=== PATIENT | female | born 2000 | race Caucasian/White ===

== ENCOUNTER 2018-08-04 17:20 | Inpatient (IN) | payer MEDICAID ==
[~2018-08-04] VITALS: Ht 142.2 cm; Wt 52.2 kg
--- NOTE | ~2018-08-04 | OP ---
PATIENT NAME: ZBIGNIEW GIL MEDICAL RECORD: [id number] :98 LOCATION:[facility] ADMISSION DATE:08/04/18 SURGEON: BHANU BRANCH MD DATE OF OPERATION: 08/05/2018 PREOPERATIVE DIAGNOSIS: Premature rupture of membranes with failed induction of labor. POSTOPERATIVE DIAGNOSES: Premature rupture of membranes with failed induction of labor and uterine atony. PROCEDURE: A primary low transverse section and B-Urbano uterine compression suture. SURGEON: Bhanu Branch MD ANESTHESIA: Regional via epidural. INTRAVENOUS FLUIDS: Per anesthesia record. ESTIMATED BLOOD LOSS: 1000 cc. SPECIMENS: Placenta and cord for gases. COMPLICATIONS: None apparent. DESCRIPTION OF PROCEDURE: The patient was taken to the operating room where regional anesthesia was achieved without difficulty. The patient was then prepped and draped in normal sterile fashion in the dorsal supine position. A Maher catheter had previously been placed and was draining freely. SCDs were on and functioning appropriately. Following prep and drape, a Pfannenstiel skin incision was made, extended downward to the underlying subcutaneous fat to level of the fascia, which was then excised in the midline with scalpel and extended bilaterally using the Ordonez scissors. The superior and inferior aspects of the fascial incision were then grasped with Jay Jay clamps times 2, tented upward, and sharply dissected from the underlying rectus muscle using the Ordonez scissors and the Bovie cautery. Rectus muscles were then bluntly in the midline and the peritoneum entered sharply at the superior aspect of the incision using the Metzenbaum scissors. The peritoneal incision was then extended laterally under direct visualization of the bladder and a bladder blade was placed into the pelvis. A bladder flap was created by excising the anterior leaf of the broad ligament across the lower uterine segment. A low transverse incision was made and extended superiorly and inferiorly using the Pelosi method. Infant's head was delivered atraumatically followed by the body. The infant was bulb suctioned upon delivery. Cord was clamped times 2, cut, and the infant was handed to awaiting nursery team. Placenta was removed manually intact, 3-vessel cord was noted. The uterus was cleaned of all clots and debris and vigorously massaged. The uterine atony was noted; however, bleeding was noted to be minimal and so massage was continued. Pitocin was begun via IV. The patient was given IM Methergine and IM Hemabate, and uterine atony continued. The patient was given Cytotec 1000 mcg per rectum and uterine atony continued. The patient desired future fertility, which was confirmed in the operating room. At this point, the bleeding was found to be less found 1000 cc. It was felt reasonable at this time to proceed with B-Urbano compression suture. The uterine incision was repaired with 0 Vicryl in a running locked fashion. OPERATIVE REPORT [id number] ZBIGNIEW GIL Approximately, 3/4 complete from lateral to the midline. This was then tied off leaving a hole in the low transverse incision in the midline and 0 Vicryl suture was then used, transfixed at the right aspect of the incision, carried over the right uterine fundus, transfixed from right to left in the lower uterine segment on the posterior aspect of the uterus. The suture then carried over the uterine fundus on the left and then anchored in the left aspect of the uterine incision. The suture was then used to compress the uterus down with minimal bleeding. Then, noted from the small defect remaining in the low transverse incision. Low transverse incision was then completely sewn overusing 0 Vicryl and good compression of the uterus was noted. Posterior cul-de-sac was then thoroughly irrigated and the uterus was replaced into the pelvis. The uterus remained at the level of the umbilicus. The counts were correct times 2 for needles, sponges, and instruments. The fascia was repaired with 0 loop PDS times 1 and the skin repaired with joaquin. The patient tolerated the procedure well, transferred to postanesthesia recovery stable without incident. TRANSINT:[id number] Voice Confirmation ID: [id number] DOCUMENT ID: [id number] BHANU BRANCH MD at 1716 CC: [id number] DICTATION DATE: 08/25/18 0609 ORACLE DATABASE ADMINISTRATOR: 08/25/18 0738 DIS IN 08/08/18 [facility] [address] [id number]
--- NOTE | ~2018-08-04 | EC ---
PATIENT:ZBIGNIEW GIL DATE OF SERVICE: 08/04/18 SEX: F MEDICAL RECORD: [id number] DATE OF : [birth year] LOCATION:[facility] AGE OF PATIENT: 17 ADMISSION DATE: 08/04/18 REFERRING PHYSICIAN: INTERPRETING PHYSICIAN: LUZMA BENJAMIN MD ECHOCARDIOGRAM REPORT ECHO CHARGES 4 ECHO COMPLETE Date: 08/08/18 CLINICAL DIAGNOSIS: POST EDEMA/ASSESS FOR EFFUSION AND CARDIOMYOPATHY ECHOCARDIOGRAPHIC MEASUREMENTS (adult normal given) AC root (d.<3.7cm) 2.6 cm LV Septum d (<1.2 cm> 1.2 cm Valve Excursion 1.2 cm LV Septum (systole) 1.6 cm Left Atria (s.<4.0cm> 3.2 cm LVPW d(<1.2cm) 1.1 cm RV (d.<2.3cm) 3.9 cm LVPW (sytole) 1.4 cm LV diastole(<5.6CM) 3.7 cm MV E-F(>70mm/sec) cm LV systole 2.1 cm LVOT Diameter 1.5 cm MV exc.(>10mm) 1.9 cm Est.ejection fraction (50-75%) % DOPPLER: LVIT cm/sec A 60.0 cm/sec E 144 cm/sec LA cm/sec RVSP 38 mmHg LVOT 106 cm/sec AOP1/2T m/s Asc. Ao 136 cm/sec RVOT 103 cm/sec RA cm/sec PA 143 cm/sec AV Gradient Peak 7.36 mmHg AV Mean 3.64 mmHg AV Area 1.4 cm MV Gradient Peak 8.59 mmHg MV Mean 1.75 mmHg MV Area cm COMMENTS: Talent Management Manager: 2 JEIMY WATTS [employer] Specials: 3 Dr. Cosby TAPE# PACS Pericardial Effusion N DATE OF SERVICE: Adequate 2-D, color flow and spectral Doppler, and M-mode. No LVH. LV internal dimensions are normal. Wall motion is normal. EF is greater than or equal to 55%. Aortic valve is tricuspid. There is no evidence of stenosis on Doppler interrogation. Left atrium is normal. Mitral valve shows no prolapse. Trivial MR. Right-sided chamber is grossly normal. Trivial TR with color flow imaging. ECHOCARDIOGRAM REPORT [id number] ZBIGNIEW GIL TRANSINT:[id number] Voice Confirmation ID: [id number] DOCUMENT ID: [id number] LUZMA BENJAMIN MD at 1150 CC: [id number] DICTATION DATE: 08/09/18934 RN SURGICAL: 08/09/18 1223 DIS IN 08/08/18 [facility] [address] [id number]
[2018-08-04 18:21] LABS: APPEARANCE CLEAR (CLEAR); BILIRUBIN NEGATIVE (NEGATIVE); COLOR DK YELLOW (YELLOW); GLUCOSE NEGATIVE (NEGATIVE); KETONE NEGATIVE (NEGATIVE); NITRITE NEGATIVE (NEGATIVE); PROTEIN TRACE mg/dL (NEGATIVE); UROBILINOGEN NORMAL (NORMAL)
[2018-08-04 18:22] LABS: RED CELLS - URINE OCC /hpf (0-5)
[2018-08-04 18:23] LABS: BACTERIA MODERATE /hpf (NONE SEEN)
[2018-08-04 19:51] LABS: HEMATOCRIT 28.6 % (36.0-48.0); HEMOGLOBIN 9.3 g/dL (12-16); MCH 26.4 pg (26.0-34.0); MCHC 32.5 g/dL (31.0-37.0); MCV 81.3 fL (80.0-100.0); MEAN PLATELET VOLUME 10.9 fL (7.4-10.4); RBC 3.52 10x6/uL (4.00-5.40); WBC 13.9 10x3/uL (4.8-10.8)
[2018-08-04 20:00] VITALS: BP 120/77; Ht 142.2 cm; Wt 52.2 kg
[2018-08-05] VITALS (7 sets, daily range): BP systolic 116–140; BP diastolic 65–85
[2018-08-05 15:05] LABS: BASOPHILS 0.2 % (0-2); EOSINOPHILS 0.1 % (0-7); HEMOGLOBIN 9.9 g/dL (12-16); IMMATURE GRANULOCYTES 0.8 % (0-5); LYMPHOCYTES 7.9 % (15-50); MCH 26.3 pg (26.0-34.0); MCHC 31.9 g/dL (31.0-37.0); MCV 82.2 fL (80.0-100.0); MEAN PLATELET VOLUME 11.1 fL (7.4-10.4); MONOCYTES 6.5 % (2-11); NEUTROPHILS 84.5 % (40-80); PLATELET COUNT 261 10x3/uL (130-400); RBC 3.77 10x6/uL (4.00-5.40); RDW 13.1 % (11.5-14.5); WBC 14.8 10x3/uL (4.8-10.8)
[2018-08-05 23:25] LABS: HEMOGLOBIN 11.2 g/dL (12-16); MCH 27.6 pg (26.0-34.0); MCHC 32.9 g/dL (31.0-37.0); MCV 83.7 fL (80.0-100.0); MEAN PLATELET VOLUME 11.2 fL (7.4-10.4); PLATELET COUNT 258 10x3/uL (130-400); RBC 4.06 10x6/uL (4.00-5.40); RDW 14.3 % (11.5-14.5); WBC 22.9 10x3/uL (4.8-10.8)
[2018-08-05 23:46] LABS: LYMPHOCYTES 3 % (15-50); NEUTROPHILS 97 % (40-80); PLATELET ESTIMATE NORMAL
[2018-08-06] VITALS (7 sets, daily range): BP systolic 112–134; BP diastolic 48–79
[2018-08-06 06:35] LABS: BASOPHILS 0.1 % (0-2); EOSINOPHILS 0 % (0-7); HEMATOCRIT 35.4 % (36.0-48.0); HEMOGLOBIN 11.8 g/dL (12-16); IMMATURE GRANULOCYTES 0.5 % (0-5); MCH 27.7 pg (26.0-34.0); MCHC 33.3 g/dL (31.0-37.0); MCV 83.1 fL (80.0-100.0); MEAN PLATELET VOLUME 11.1 fL (7.4-10.4); MONOCYTES 10.1 % (2-11); NEUTROPHILS 85.3 % (40-80); PLATELET COUNT 230 10x3/uL (130-400); RBC 4.26 10x6/uL (4.00-5.40); RDW 14.3 % (11.5-14.5); WBC 31.2 10x3/uL (4.8-10.8)
[2018-08-06 07:34] LABS: RAPID PLASMA REAGIN Non Reactive (Non Reactive)
[2018-08-06 09:14] LABS: UDS - AMPHET NEGATIVE QUAL (NEGATIVE); UDS - BARB NEGATIVE QUAL (NEGATIVE); UDS - BENZO NEGATIVE QUAL (NEGATIVE); UDS - COCAINE NEGATIVE QUAL (NEGATIVE); UDS - OPIATE NEGATIVE QUAL (NEGATIVE); UDS - PCP NEGATIVE QUAL (NEGATIVE); UDS - THC POSITIVE QUAL (NEGATIVE)
[2018-08-06 13:59] LABS: BASOPHILS 0 % (0-2); EOSINOPHILS 0.1 % (0-7); HEMATOCRIT 33.6 % (36.0-48.0); HEMOGLOBIN 11.1 g/dL (12-16); IMMATURE GRANULOCYTES 0.5 % (0-5); LYMPHOCYTES 6.4 % (15-50); MCH 27.1 pg (26.0-34.0); MEAN PLATELET VOLUME 10.9 fL (7.4-10.4); MONOCYTES 8.9 % (2-11); NEUTROPHILS 84.1 % (40-80); PLATELET COUNT 202 10x3/uL (130-400); RDW 14.2 % (11.5-14.5); WBC 24.5 10x3/uL (4.8-10.8)
[2018-08-07 07:30] VITALS: BP 120/70
[2018-08-07 07:39] LABS: BASOPHILS 0.1 % (0-2); EOSINOPHILS 0.4 % (0-7); HEMATOCRIT 31.8 % (36.0-48.0); HEMOGLOBIN 10.7 g/dL (12-16); IMMATURE GRANULOCYTES 0.5 % (0-5); LYMPHOCYTES 7.8 % (15-50); MCH 27.4 pg (26.0-34.0); MCHC 33.6 g/dL (31.0-37.0); MCV 81.5 fL (80.0-100.0); MEAN PLATELET VOLUME 10.2 fL (7.4-10.4); MONOCYTES 8.5 % (2-11); NEUTROPHILS 82.7 % (40-80); PLATELET COUNT 193 10x3/uL (130-400); RDW 14.4 % (11.5-14.5)
[2018-08-07 07:41] LABS: WBC 16.7 10x3/uL (4.8-10.8)
[2018-08-07 07:49] LABS: ALBUMIN 1.3 g/dL (3.4-5.0); ALKALINE PHOSPHATASE 224 U/L (46-116); ALT (SGPT) 19 U/L (10-68); BILIRUBIN - TOTAL 0.27 mg/dL (0.2-1.3); CALC OSMOLALITY 271 mosm/kg (275-300); CALCIUM 7.6 mg/dL (8.5-10.1); CARBON DIOXIDE 20.9 mmol/L (21.0-32.0); CHLORIDE - SERUM 107 mmol/L (98-107); CREATININE - SERUM 0.8 mg/dL (0.6-1.3); GLUCOSE 75 mg/dL (74-106); POTASSIUM - SERUM 3.9 mmol/L (3.5-5.1); PROTEIN - SERUM 4.4 g/dL (6.4-8.2); SODIUM 137 mmol/L (136-145); UREA NITROGEN 9 mg/dL (7-18); eGFR NON AFRICAN AMERICAN > 90 mL/min (90-120)
[2018-08-07 11:06] VITALS: BP 114/66
[2018-08-07 19:19] VITALS: BP 121/73
[2018-08-08 00:31] VITALS: BP 125/79
[2018-08-08 08:11] VITALS: BP 130/83
[2018-08-08] MEDS ORDERED: FUROSEMIDE20 MG PO (16:28)
[2018-08-08] MEDS ORDERED: NORCO 10-325 TA1 TAB PO (16:28)
[2018-08-08] MEDS ORDERED: IBUPROFEN600 MG PO (16:28)
[2018-08-12] MEDS ORDERED: NIFEDIPINE30 MG/BOT1 PO (17:52)
== END 2018-08-08 16:48 | disposition home or self-care (01) | DRG 787 ==
LOC: D.LDO 17:20 → D.LD 18:49 → D.WS 18:49 → D.LD 08-07 13:42
PROVIDERS: Obstetrics & Gynecology
PROC: 0UQ90ZZ Repair Uterus, Open Approach (ICD-10-PCS; 2018-08-05)
PROC: 10D00Z1 Extraction of Products of Conception, Low, Open Approach (ICD-10-PCS; principal; 2018-08-05 18:45)
DX: O42.013 Preterm premature rupture of membranes, onset of labor within 24 hours of rupture, third trimester (principal); O72.1 Other immediate postpartum hemorrhage; D62 Acute posthemorrhagic anemia; Z3A.35 35 weeks gestation of pregnancy; Z37.0 Single live birth; O99.02 Anemia complicating childbirth

== ENCOUNTER → 2018-08-12 15:15 | Outpatient (CLI) | payer MEDICAID ==
[2018-08-04 20:00] VITALS: BMI 25.8
[2018-08-12] VITALS (8 sets, daily range): BP systolic 143–154; BP diastolic 82–95
--- NOTE | ~2018-08-12 | DS ---
PATIENT:ZBIGNIEW GIL :[birth year] MEDICAL RECORD: [id number] DISCHARGE SUMMARY ADMISSION DATE: 08/12/18 DISCHARGE DATE: 08/12/18 SUBJECTIVE: The patient was admitted at 35 weeks and 4 days, 1, admitted for loss of fluid and premature rupture of membranes. The patient had been started on Pitocin at that time. PAST MEDICAL HISTORY: The patient reported no significant past medical history. PAST SURGICAL HISTORY: Significant for removal of the wisdom teeth. ALLERGIES: The patient reported no allergies. FAMILY HISTORY: No significant family history. SOCIAL HISTORY: Negative times 3. PHYSICAL EXAMINATION: VITAL SIGNS: Admit vital signs was found to be stable. The patient was afebrile and normotensive. LUNGS: Clear to auscultation. CARDIOVASCULAR: Regular rate and rhythm. PELVIC: Uterus was appropriately sized and nontender. Amnio stat test was found to be positive. EXTREMITIES: Lower extremities were free of Homans sign or erythema or swelling. Fetus with a 130 category 1 tracing. ASSESSMENT AND PLAN: At that time spontaneous rupture of membranes at 35 weeks. The patient admitted by Ealr Tejada MD. Pitocin was then begun. I assumed care and added Invanz due to the prolonged rupture of membranes, category 1 tracing remained. No significant cervical change was noted despite prolonged use of Pitocin and fetus with also beginning of having decelerations. I discussed with the patient the necessity to move forward with . The patient voiced understanding and consent. Operative report is as dictated. The patient did well overnight on postop day #0, on Dilaudid WOOD TYPE CUTTER, IV Toradol, IV fluids, tolerating clear liquid diet. SCDs were on and functioning normally. Hourly checks of the uterine fundus were performed due to uterine atony and B-Urbano suture placement. The morning of postop day #1, the patient continued to do well. The patient with some antidiuretic hormone effect from prolonged use of Pitocin. Pitocin was discontinued at that time. Uterine fundus was found to be at the umbilicus. The patient with normal lochia. Methergine was continued for 24 hours. The patient was continued on antibiotics. White blood cell count postop was found to be 33, although the patient was afebrile. The uterine atony can sometimes be a sequelae of uterine infections, so the patient was continued on antibiotics. The patient had received 2 units of packed red blood cells intraoperatively. Urine output was found to be adequate. CBC was checked in the afternoon, the patient remained afebrile and uterus is nontender. The patient continued to do well on postop day #2, symptoms improving; however, with still dependent and nondependent edema. The patient was given a dose of Lasix and was diuresing normally. White blood cell count was normalizing. Incision was clean, dry and intact. Uterus remained infraumbilical. The patient was tolerating p.o. pain meds and general diet and ambulating and voiding freely. Covering physician, Dr. 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 I at that time ordered a echo, which found a normal ejection fraction, it was felt at that time that the elevated BNP was due to valvular regurg and no evidence of heart failure was noted at that time. Clinically, the patient without significant pulmonary edema or orthopnea. The patient was discharged home on postoperative day #3 with instructions to follow up the next week. TRANSINT:[id number] Voice Confirmation ID: [id number] DOCUMENT ID: [id number] NANO GANN MD at 1716 CC: [id number] DICTATION DATE: 08/25/18614 CLINICAL INVESTIGATOR: 08/25/18816 DEP CLI 08/12/18 [place] [id number]
[~2018-08-12 15:15] MED LIST: FUROSEMIDE20 MG PO; IBUPROFEN600 MG PO; NIFEDIPINE30 MG/BOT1 PO; NORCO 10-325 TA1 TAB PO
[2018-08-12 16:23] LABS: BASOPHILS 0.2 % (0-2); HEMATOCRIT 28.3 % (36.0-48.0); HEMOGLOBIN 9.2 g/dL (12-16); MCH 26.8 pg (26.0-34.0); MCHC 32.5 g/dL (31.0-37.0); MCV 82.5 fL (80.0-100.0); MEAN PLATELET VOLUME 9.1 fL (7.4-10.4); MONOCYTES 7.5 % (2-11); NEUTROPHILS 72.3 % (40-80); RBC 3.43 10x6/uL (4.00-5.40); RDW 14.4 % (11.5-14.5); WBC 10.1 10x3/uL (4.8-10.8)
[2018-08-12 16:24] LABS: PLATELET COUNT 390 10x3/uL (130-400)
[2018-08-12 16:43] LABS: APPEARANCE CLEAR (CLEAR); BILIRUBIN NEGATIVE (NEGATIVE); COLOR YELLOW (YELLOW); GLUCOSE NEGATIVE (NEGATIVE); KETONE NEGATIVE (NEGATIVE); NITRITE NEGATIVE (NEGATIVE); PROTEIN NEGATIVE (NEGATIVE); UROBILINOGEN NORMAL (NORMAL)
[2018-08-12 16:56] LABS: ALBUMIN 2.1 g/dL (3.4-5.0); BILIRUBIN - DIRECT 0.13 mg/dL (0.00-0.30); BILIRUBIN - INDIRECT 0.17 mg/dL (0.00-1.00); BILIRUBIN - TOTAL 0.3 mg/dL (0.2-1.3); PROTEIN - SERUM 5.6 g/dL (6.4-8.2); URIC ACID 6.3 mg/dL (2.6-7.2)
== END | disposition home or self-care (01) ==
LOC: D.LDO 15:15
PROVIDERS: Obstetrics & Gynecology
DX: O26.899 Other specified pregnancy related conditions, unspecified trimester (principal); Z3A.00 Weeks of gestation of pregnancy not specified